=== PATIENT | female | born 2000 | race Caucasian/White ===

== ENCOUNTER 2018-03-28 02:54 | Outpatient (CLI) | payer MEDICAID | END 2018-03-28 06:35 | disposition home or self-care (01) | LOC: OBT 02:54 → L-D 02:54 → OBT 06:35 | DX: O47.1 False labor at or after 37 completed weeks of gestation (principal); Z3A.40 40 weeks gestation of pregnancy | CPT/HCPCS: 76818 ==

== ENCOUNTER 2018-03-30 08:54 | Inpatient (IN) | payer MEDICAID ==
[2018-03-30] MEDS: LACTATED RINGER'S 1,000 ML IV ×2 (09:50→11:23)
[2018-03-30] MEDS ORDERED: BUTORPHANOL 2 MG INJ IV (10:00)
[2018-03-30] MEDS ORDERED: IBUPROFEN 600 MG TAB PO (10:00)
[2018-03-30] MEDS ORDERED: MISOPROSTOL 200 MCG TAB PR ×2 (10:00→19:30)
[2018-03-30] MEDS ORDERED: OXYTOCIN 30 UNITS/LR 500 ML IV ×2 (10:00→19:30)
[2018-03-30] MEDS ORDERED: CARBOPROST 250 MCG INJ IM ×2 (10:00→19:30)
[2018-03-30 10:26] LABS: ADD MAN DIFF? NO
[2018-03-30 10:28] LABS: WHITE BLOOD COUNT 11.7 10^3/ul (4.8-10.8)
[2018-03-30 10:28] LABS: BASOPHILS % 0.2 % (0.0-2.0); EOSINOPHILS % 0.3 % (0.0-7.0); HEMATOCRIT 30.8 % (37.0-47.0); LYMPHOCYTES # 1.2 10^3/ul (0.8-2.9); LYMPHOCYTES % 10.6 % (18.0-55.0); MEAN CORPUSCULAR HEMOGLOBIN 26.1 pg (29.0-33.0); MEAN CORPUSCULAR HGB CONC 32.5 g/dl (32.0-37.0); MEAN CORPUSCULAR VOLUME 80.4 fl (72.0-104.0); MEAN PLATELET VOLUME 11.8 fl (7.4-10.4); MONOCYTE # 0.9 10^3/ul (0.3-0.9); MONOCYTES % 7.5 % (0.0-13.0); NEUTROPHIL # 9.4 10^3/ul (1.6-7.5); NEUTROPHILS % 80.5 % (30.0-74.0); PLATELET COUNT 169 10^3/UL (140-415); RED BLOOD COUNT 3.83 10^6/ul (4.20-5.40); RED CELL DISTRIBUTION WIDTH 14.8 % (11.5-14.5)
[2018-03-30 10:58] LABS: INR 0.96; PROTIME 12.9 Sec (11.9-14.9)
[2018-03-30] MEDS ORDERED: FENTAnyl 2MCG/ML-ROPIV 0.2% 100 ML (13:05)
[2018-03-30] MEDS ORDERED: NALOXONE (0.4 MG/ML) INJ IV (13:30)
[2018-03-30] MEDS ORDERED: HYDROmorphONE 0.5 MG/0.5 ML SYG IV ×2 (13:30)
[2018-03-30] MEDS ORDERED: DIPHENHYDRAMINE 50 MG INJ IV ×2 (13:30→19:30)
[2018-03-30] MEDS ORDERED: KETOROLAC 30 MG INJ IV (13:30)
[2018-03-30 15:18] LABS: RAPID PLASMA REAGIN NONREACTIVE (NR)
[2018-03-30] MEDS: FENTAnyl 2MCG/ML-ROPIV 0.2% 100 ML BAG EPI (16:08)
[2018-03-30] MEDS: LIDOCAINE 1% (MPF) 30 ML INJ INJ (18:20)
[2018-03-30] MEDS: METHYLERGONOVINE 0.2 MG INJ IM (18:30)
[2018-03-30] MEDS: OXYTOCIN 30 UNITS/LR 500 ML IV ×2 (18:32→18:44)
[2018-03-30] MEDS: ONDANSETRON 4 MG INJ IV (18:56)
[2018-03-30] MEDS ORDERED: ACETAMINOPHEN 325 MG TAB PO (19:30)
[2018-03-30] MEDS ORDERED: DIBUCAINE 1% 30 GM OINT PR (19:30)
[2018-03-30] MEDS ORDERED: METHYLERGONOVINE 0.2 MG INJ IM (19:30)
[2018-03-30] MEDS ORDERED: ZOLPIDEM 5 MG TAB PO (19:30)
[2018-03-30] MEDS ORDERED: ONDANSETRON 4 MG INJ IV (19:30)
[2018-03-30] MEDS ORDERED: SENNA/DOCUSATE NA (8.6MG/50MG) TAB PO (19:30)
[2018-03-30] MEDS: DEXTROSE 5%-LR 1,000 ML IV (20:30)
[2018-03-30] MEDS: OXYCODONE/ASPIRIN (4.88/325) TAB PO (21:20)
[2018-03-30] MEDS: BENZOCAINE 20% 56 ML SPRAY TOP (21:24)
[2018-03-30] MEDS: WITCH HAZEL/GLYCERIN PAD PR (21:24)
[2018-03-30] MEDS: LANOLIN 7 GM TUBE TOP (21:24)
[2018-03-30] MEDS: LACTATED RINGER'S 1,000 ML IV* (23:01)
[2018-03-31] MEDS: DEXTROSE 5%-LR 1,000 ML IV (03:16)
[2018-03-31] MEDS: LACTATED RINGER'S 1,000 ML IV* (03:16)
[2018-03-31 09:39] LABS: ADD MAN DIFF? NO
[2018-03-31 09:40] LABS: BASOPHILS % 0.2 % (0.0-2.0); EOSINOPHILS % 0.2 % (0.0-7.0); HEMATOCRIT 26.2 % (37.0-47.0); HEMOGLOBIN 8.5 g/dl (12.0-16.0); LYMPHOCYTES # 1.6 10^3/ul (0.8-2.9); LYMPHOCYTES % 14.4 % (18.0-55.0); MEAN CORPUSCULAR HEMOGLOBIN 26.4 pg (29.0-33.0); MEAN CORPUSCULAR HGB CONC 32.4 g/dl (32.0-37.0); MEAN CORPUSCULAR VOLUME 81.4 fl (72.0-104.0); MEAN PLATELET VOLUME 10.5 fl (7.4-10.4); MONOCYTE # 1.1 10^3/ul (0.3-0.9); MONOCYTES % 9.6 % (0.0-13.0); NEUTROPHIL # 8.4 10^3/ul (1.6-7.5); NEUTROPHILS % 74.7 % (30.0-74.0); PLATELET COUNT 141 10^3/UL (140-415); RED BLOOD COUNT 3.22 10^6/ul (4.20-5.40); RED CELL DISTRIBUTION WIDTH 15.1 % (11.5-14.5)
[2018-03-31 09:40] LABS: WHITE BLOOD COUNT 11.2 10^3/ul (4.8-10.8)
[2018-03-31] MEDS: IBUPROFEN 600 MG TAB PO ×3 (12:12→23:28)
[2018-03-31] MEDS ORDERED: IBUPROFEN 600 MG TAB PO (18:00)
[2018-04-01] MEDS: IBUPROFEN 600 MG TAB PO ×2 (06:00→11:45)
[2018-04-01] MEDS: MEASLES,MUMPS,RUBELLA VACCINE INJ SC* (09:55)
[2018-04-01] MEDS: DIPHTH/TET/ACEL PERTUSS (ADULT) 0.5 ML VIAL IM* (09:55)
== END 2018-04-01 15:07 | disposition home or self-care (01) | DRG 775 ==
LOC: OBT 08:54 → L-D 09:03 → OBT 09:27 → L-D 09:20 → PP1 20:31
PROVIDERS: Obstetrics & Gynecology
PROC: 10E0XZZ Delivery of Products of Conception, External Approach (ICD-10-PCS; principal; 2018-03-30)
PROC: 0W8NXZZ Division of Female Perineum, External Approach (ICD-10-PCS; 2018-03-30)
DX: O80 Encounter for full-term uncomplicated delivery (principal); Z3A.40 40 weeks gestation of pregnancy; Z37.0 Single live birth
CPT/HCPCS: 62319; 85025; 85610; 85730; 86592; 86900; 86901